=== PATIENT | female | born 1990 | race Caucasian/White ===

== ENCOUNTER 2018-02-19 07:57 | Emergency (ER) | payer OTHER ==
[~2018-02-19] VITALS: Ht 170.2 cm; Wt 72.6 kg
[2018-02-19 07:57] VITALS: BP 131/85
[2018-02-19 09:04] LABS: PREG TEST PT QUAL NEGATIVE (NEG)
[2018-02-19 09:08] LABS: BASO # 0.1 x10^3/uL (0.0-0.2); BASO % 1 % (0-3); EOS # 0.1 x10^3/uL (0.0-0.7); EOS % 1 % (0-3); HEMOGLOBIN 14.8 g/dL (12.0-15.5); LYMPH # 1.5 x10^3/uL (1.0-4.8); LYMPH % 29 % (24-48); MEAN CORPUSCULAR HEMOGLOBIN 29 pg (25-35); MEAN CORPUSCULAR HGB CONC 35 g/dL (31-37); MEAN CORPUSCULAR VOLUME 84 fL (79-100); MONO # 0.5 x10^3/uL (0.0-1.1); MONO % 10 % (0-9); NEUT # 3.1 x10^3uL (1.8-7.7); NEUT % 59 % (31-73); PLATELET COUNT 224 x10^3/uL (140-400); RED BLOOD COUNT 5.04 x10^6/uL (3.50-5.40); RED CELL DISTRIBUTION WIDTH 13.2 % (11.5-14.5); WHITE BLOOD COUNT 5.3 x10^3/uL (4.0-11.0)
[2018-02-19 09:17] LABS: ALBUMIN 4.2 g/dL (3.4-5.0); ALBUMIN/GLOBULIN RATIO 1.1 (1.0-1.7); CALCIUM 9.7 mg/dL (8.5-10.1); CREATININE 0.7 mg/dL (0.6-1.0); GFR 98.9; POTASSIUM 4.5 mmol/L (3.5-5.1); TOTAL BILIRUBIN 0.4 mg/dL (0.2-1.0); TOTAL PROTEIN 8.1 g/dL (6.4-8.2)
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
[2018-02-20 07:17] LABS: HCV ANTIBODY <0.1 s/co ratio (0.0-0.9); HEP A IGM ABDY Negative (Negative)
== END 2018-02-19 09:05 | disposition home or self-care (01) ==
LOC: ER 07:57
DX: Z77.21 Contact with and (suspected) exposure to potentially hazardous body fluids (principal); Z88.5 Allergy status to narcotic agent
CPT/HCPCS: 36415; 80053; 80074; 84703; 85025; 86703; 99284